=== PATIENT | male | born 1935 | race Caucasian/White ===

== ENCOUNTER 2018-05-27 10:08 | Outpatient (CLI) | payer OTHER, SELFPAY ==
[2018-05-27 10:55] LABS: Abs Immature Grans 0.02 k/cumm (0.0-0.09); Absolute Basophil Count 0.01 k/cumm (0.0-0.2); Absolute Eosinophil Count 0.02 k/cumm (0.0-0.7); Absolute Lymphocyte Count 1.62 k/cumm (1.2-3.4); Absolute Monocyte Count 1.21 k/cumm (0.11-0.7); Absolute Neutrophil Count 0.68 k/cumm (1.2-6.7); Basophils % 0.3; Eosinophils % 0.6; HGB 10.9 g/dL (13.5-17.5); Immature Grans % 0.6; Lymphocytes % 45.5; Mean Corpuscular Hemoglobin 30.7 pg (27.0-33.0); Mean Platelet Volume 13.2 fL (8.0-11.0); RBC 3.55 m/cumm (4.50-6.00); RBC Distribution Width 15.8 % (11.8-14.1); White Blood Cell Count 3.56 k/cumm (4.4-10.8)
[2018-05-27 11:11] LABS: ALT 21 U/L (12-78); AST 15 U/L (15-37); Albumin 3.8 g/dL (3.4-5.0); Alkaline Phosphatase 69 U/L (46-116); Anion Gap 9.7 mmol/L (3-11); BUN 40 mg/dL (7-18); Bilirubin, Total 0.7 mg/dL (0.2-1.0); CO2 24.3 mmol/L (21.0-32.0); CREATININE 1.43 mg/dL (0.70-1.30); Calcium 8.7 mg/dL (8.5-10.1); Chloride 109 mmol/L (98-107); Estimated GFR 47.46 (mL/min/1.73m2); Ferritin 63 ng/mL (8-388); Glucose 78 mg/dL (70-100); Potassium 4.3 mmol/L (3.5-5.1); Sodium 143 mmol/L (136-145); Total Protein 6.6 g/dL (6.4-8.2)
[2018-05-27 11:13] LABS: Iron 93 ug/dL (50-175); Total Iron Binding Capacity 362 ug/dL (250-450); Transferrin Sat 26 % (20-55)
[2018-05-27 11:16] LABS: Platelet Count 84 x1000/uL (130-400)
[2018-05-28 20:20] LABS: Erythropoietin 34.1 mIU/mL (2.6 - 18.5)
== END 2018-05-27 10:28 ==
PROVIDERS: PCP Family Medicine; Visit Provider Internal Medicine Hematology & Oncology
DX: D75.81 Myelofibrosis (principal); D50.0 Iron deficiency anemia secondary to blood loss (chronic); N18.9 Chronic kidney disease, unspecified
CPT/HCPCS: 36415; 80053; 82668; 82728; 83540; 83550; 85025

== ENCOUNTER 2018-10-26 07:02 | Outpatient (CLI) | payer OTHER, SELFPAY ==
[2018-10-26 07:51] LABS: ALT 30 U/L (12-78); AST 18 U/L (15-37); Albumin 3.8 g/dL (3.4-5.0); Alkaline Phosphatase 89 U/L (46-116); Anion Gap 9.5 mmol/L (3-11); BUN 29 mg/dL (7-18); Bilirubin, Total 0.7 mg/dL (0.2-1.0); CO2 25.5 mmol/L (21.0-32.0); CREATININE 1.48 mg/dL (0.70-1.30); Calcium 8.1 mg/dL (8.5-10.1); Chloride 108 mmol/L (98-107); Estimated GFR 45.62 (mL/min/1.73m2); Glucose 91 mg/dL (70-100); Potassium 4.1 mmol/L (3.5-5.1); Sodium 143 mmol/L (136-145); Total Protein 6.9 g/dL (6.4-8.2)
[2018-10-26 07:56] LABS: Abs Immature Grans 0.07 k/cumm (0.0-0.09); Absolute Basophil Count 0.01 k/cumm (0.0-0.2); Absolute Eosinophil Count 0.05 k/cumm (0.0-0.7); Absolute Lymphocyte Count 1.48 k/cumm (1.2-3.4); Absolute Monocyte Count 0.95 k/cumm (0.11-0.7); Absolute Neutrophil Count 1.12 k/cumm (1.2-6.7); Basophils % 0.3; Eosinophils % 1.4; HCT 35.8 % (40.0-50.0); HGB 11.8 g/dL (13.5-17.5); Immature Grans % 1.9; Lymphocytes % 40.2; Mean Corpuscular Hemoglobin 30.9 pg (27.0-33.0); Mean Corpuscular Volume 93.7 fL (80-95); Mean Platelet Volume 11.7 fL (8.0-11.0); Monocytes % 25.8; Neutrophils % 30.4; RBC 3.82 m/cumm (4.50-6.00); RBC Distribution Width 16.2 % (11.8-14.1); White Blood Cell Count 3.68 k/cumm (4.4-10.8)
[2018-10-26 08:18] LABS: Ferritin 56 ng/mL (8-388)
[2018-10-26 08:19] LABS: Platelet Count 76 x1000/uL (130-400)
[2018-10-26 08:20] LABS: RBC Morphology Normal
[2018-10-26 08:27] LABS: Iron 71 ug/dL (50-175); Total Iron Binding Capacity 387 ug/dL (250-450); Transferrin Sat 18 % (20-55)
[2018-10-26 08:33] LABS: Cholesterol 124 mg/dL (50-200); HDL Cholesterol 45 mg/dL (40-60); LDL CHOLESTEROL 73 mg/dL (<100); Triglyceride 36 mg/dL (30-150)
[2018-10-26 08:45] LABS: Uric Acid 8.2 mg/dL (3.5-7.2)
[2018-10-27 15:33] LABS: Erythropoietin 25.3 mIU/mL (2.6 - 18.5)
== END 2018-10-26 07:22 ==
PROVIDERS: PCP Family Medicine; Visit Provider Internal Medicine Hematology & Oncology
DX: I10 Essential (primary) hypertension (principal); E78.2 Mixed hyperlipidemia; M19.072 Primary osteoarthritis, left ankle and foot; D75.81 Myelofibrosis; D50.0 Iron deficiency anemia secondary to blood loss (chronic); N18.9 Chronic kidney disease, unspecified
CPT/HCPCS: 36415; 80053; 80061; 82668; 83721; 82728; 83540; 83550; 84550; 85025

== ENCOUNTER 2019-02-09 13:06 | Outpatient (CLI) | payer OTHER, SELFPAY ==
[2019-02-09 13:42] LABS: Abs Immature Grans 0.16 k/cumm (0.0-0.09); HCT 37.2 % (40.0-50.0); HGB 11.9 g/dL (13.5-17.5); Mean Corpuscular Hemoglobin 29.9 pg (27.0-33.0); Mean Corpuscular Volume 93.5 fL (80-95); Mean Platelet Volume 12.4 fL (8.0-11.0); RBC 3.98 m/cumm (4.50-6.00); RBC Distribution Width 15.4 % (11.8-14.1); White Blood Cell Count 4.27 k/cumm (4.4-10.8)
[2019-02-09 13:59] LABS: Iron 124 ug/dL (50-175); Total Iron Binding Capacity 390 ug/dL (250-450); Transferrin Sat 32 % (20-55)
[2019-02-09 14:00] LABS: ALT 26 U/L (12-78); AST 15 U/L (15-37); Albumin 4.1 g/dL (3.4-5.0); Alkaline Phosphatase 84 U/L (46-116); Anion Gap 12.6 mmol/L (3-11); BUN 39 mg/dL (7-18); Bilirubin, Total 0.8 mg/dL (0.2-1.0); CO2 24.4 mmol/L (21.0-32.0); CREATININE 1.58 mg/dL (0.70-1.30); Calcium 8.6 mg/dL (8.5-10.1); Chloride 108 mmol/L (98-107); Ferritin 40 ng/mL (8-388); Glucose 125 mg/dL (70-100); Sodium 145 mmol/L (136-145); Total Protein 7.1 g/dL (6.4-8.2)
[2019-02-09 14:06] LABS: Absolute Lymphocyte Count 1.45 k/cumm (1.2-3.4); Absolute Neutrophil Count 1.75 k/cumm (1.2-6.7); Atypical Lymphocytes % 1; Platelet Count 76 x1000/uL (130-400)
[2019-02-09 14:07] LABS: Diff Comment Manual Differential; RBC Morphology Normal
== END 2019-02-09 13:26 ==
PROVIDERS: PCP Family Medicine; Visit Provider Internal Medicine Hematology & Oncology
DX: D75.81 Myelofibrosis (principal); D50.0 Iron deficiency anemia secondary to blood loss (chronic)
CPT/HCPCS: 36415; 80053; 82728; 83540; 83550; 85025

== ENCOUNTER 2019-05-13 10:25 | Outpatient (CLI) | payer OTHER, SELFPAY ==
[2019-05-13 11:55] LABS: Iron 113 ug/dL (50-175); Total Iron Binding Capacity 356 ug/dL (250-450); Transferrin Sat 32 % (20-55)
[2019-05-13 12:08] LABS: ALT 29 U/L (16-63); AST 16 U/L (15-37); Albumin 4.2 g/dL (3.4-5.0); Alkaline Phosphatase 86 U/L (46-116); Anion Gap 8.9 mmol/L (3-11); BUN 37 mg/dL (7-18); Bilirubin, Total 0.8 mg/dL (0.2-1.0); CO2 27.1 mmol/L (21.0-32.0); CREATININE 1.64 mg/dL (0.70-1.30); Calcium 8.5 mg/dL (8.5-10.1); Chloride 108 mmol/L (98-107); Estimated GFR 40.52 (mL/min/1.73m2); Ferritin 78 ng/mL (8-388); Glucose 85 mg/dL (70-100); Sodium 144 mmol/L (136-145); Total Protein 6.9 g/dL (6.4-8.2)
[2019-05-13 15:03] LABS: Abs Immature Grans 0.19 k/cumm (0.0-0.09); Absolute Basophil Count 0.01 k/cumm (0.0-0.2); Absolute Eosinophil Count 0.03 k/cumm (0.0-0.7); Absolute Monocyte Count 1.08 k/cumm (0.11-0.7); Basophils % 0.2; Eosinophils % 0.7; HCT 38.6 % (40.0-50.0); HGB 12.3 g/dL (13.5-17.5); Immature Grans % 4.6; Lymphocytes % 36.5; Mean Corp. HGB Concentration 31.9 g/dL (32.0-36.0); Mean Corpuscular Hemoglobin 29.9 pg (27.0-33.0); Mean Corpuscular Volume 93.7 fL (80-95); Mean Platelet Volume 13.4 fL (8.0-11.0); Monocytes % 26.3; Neutrophils % 31.7; RBC 4.12 m/cumm (4.50-6.00); RBC Distribution Width 15.5 % (11.8-14.1); White Blood Cell Count 4.11 k/cumm (4.4-10.8)
[2019-05-13 15:36] LABS: Platelet Count 70 x1000/uL (130-400)
[2019-05-16 10:39] LABS: Erythropoietin 20.9 mIU/mL (2.6 - 18.5)
== END 2019-05-13 10:45 ==
PROVIDERS: PCP Family Medicine; Visit Provider Internal Medicine Hematology & Oncology
DX: D75.81 Myelofibrosis (principal); D50.0 Iron deficiency anemia secondary to blood loss (chronic); N18.9 Chronic kidney disease, unspecified
CPT/HCPCS: 36415; 80053; 82668; 82728; 83540; 83550; 85025

== ENCOUNTER 2021-09-24 12:34 | Outpatient (REF) | payer MEDICARE, SELFPAY ==
--- NOTE | 2021-09-24 11:30 | SKI_PTH ---
PATIENT: Zeeshan Reed LOC: [facility] U#:[id number] AGE/SX: 86/M ROOM: RE09/24/[address]: Darinel Beach MD : [id number] BED: DIS: 09/24/2021 SPEC #: [id number] RECD: 09/24/21 17:31 STATUS: EVAN RERios #: [id number] CASSI: 09/24/21 11:[address]: Darinel Beach DEPT: Surgical Specimen RECD BY: Georgia Langford ENTERED: 09/24/21 17:32 SP TYPE: BO SAWANT DR: Jack Briones Tissues: 1 - SKIN BIOPSY(SHAVE/PUNCH) Procedures: SKIN LEVEL 4 Comments: [id number]
== END 2021-09-24 12:35 | disposition home or self-care (01) ==
LOC: LBN 12:34
PROVIDERS: PCP Family Medicine; Visit Provider Otolaryngology
DX: C44.219 Basal cell carcinoma of skin of left ear and external auricular canal (principal)
CPT/HCPCS: 88305

== ENCOUNTER 2023-01-20 13:06 | Emergency (ER) | payer MEDICARE, SELFPAY ==
[2023-01-20 13:07] VITALS: BP 134/71; PULSE 60; RESP 17; TEMP 36.7; O2SAT 95
--- NOTE | 2023-01-20 13:15 | DI.CT_ITS ---
Exam(s) CT HEAD CERVICAL SPINE WO EXAM: CT HEAD CERVICAL SPINE WO CLINICAL HISTORY: fall, [place]. TECHNIQUE: Imaging Protocol: Axial computed tomography images with coronal and sagittal reformatted images were created and reviewed COMPARISON: No exams were available for comparison FINDINGS: BRAIN: There are no skull fractures nor fluid in the visualized paranasal sinuses. There is no evidence of intracranial hemorrhage, mass effect, or shift of midline structures. There are no extra-axial fluid collections. The ventricles are not enlarged or shifted and there is no blo od within the ventricular system nor within the basal cisterns. Abundant bilateral periventricular hypodensity consistent chronic small vessel disease. There is megan dence of previous area of infarct in the left frontal lobe. Slightly increased ventricular size evid ent. CERVICAL SPINE: No evidence of acute fracture. No prevertebral soft tissue swelling. There is multilevel advanced disc space narrowing and anterior osteophytes. No significant listhesis . Multilevel facet arthropathy. There is no significant facet joint malalignment. No significant osseous lesions evident. IMPRESSION: No evidence of intracranial hemorrhage. 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 Mildly prominent ventricular system relative to the overlying cortical sulci. If there is cl inical triad of dementia, incontinence, and gait disturbance then 1 might consider possibility of nor mal pressure hydrocephalus. Advanced chronic multilevel degenerative changes in the cervical spine. No evidence of cervical spine fracture, malalignment, nor acute compromise of the cervical spinal can al. RADIATION DOSE DELIVERED: Total DLP DATA REPOSITORY: All CT scans at this facility are submitted to the National Radiology Data Registry (NRDR) Dose Index Registry (DIR) with the [employer] ([employer]). RADIATION OPTIMIZATION: All CT scans at this facility use at least one of these dose optimization te chniques: automated exposure control; mA and/or kV adjustment per patient size (includes targeted exa ms where dose is matched to clinical indication); or iterative reconstruction.
--- NOTE | 2023-01-20 14:52 | ED.GENADUL_ITS ---
Discharge Plan Disposition Patient Disposition: Home Discharge Details Clinical Impression: Head injury, Laceration of forehead Primary Care Provider: None,None ED Provider: Georgia Tavarez Home Meds and New Rx's Prescriptions: Continued allopurinol 300 mg tablet 300 mg PO DAILY Patient Comments: Is taking PRN colchicine 0.6 mg capsule 0.6 mg PO DAILY Rx Instructions: Takes PRN diazepam 5 mg tablet 5 mg PO DIRECTED tamsulosin [Flomax] 0.4 mg capsule 0.8 mg PO DAILY gabapentin 100 mg capsule 100 mg PO DAILY losartan 50 mg tablet 50 mg PO DAILY ibuprofen [Advil] 200 mg tablet 200 mg PO Q6H PRN hydrochlorothiazide 25 mg tablet 25 mg PO DAILY aspirin 81 mg tablet,delayed release (DR/EC) 81 mg PO DAILY simvastatin 40 mg tablet 40 mg PO DAILY Discharge Instructions Instructions: Head Injury (ED), Facial Laceration (ED) Additional Instructions: Take Tylenol as needed for discomfort Apply bacitracin to the draining areas on your forehead, avoid the area with Dermabond, this will resolve on its own You may apply bacitracin to the wound on the left side of your eye as well Please return with spreading redness, fever, worsening pain Referrals: Jack Briones [OSTEOPATHIC DOCTOR] - Discharge Data Discharge Date/Time-TO BE ENTERED AT DEPARTURE: 01/20/23 15:13 Medical Decision Making 87-year-old male alert and oriented, cranial nerves II through XII intact, ambulatory with steady gait with cane CT head and cervical spine ordered secondary to age and comorbidities, do not show evidence of acute abnormality, there is mention of possible hydrocephalus, patient denies any urinary incontinence, balance issues or dementia, he can follow-up with his primary care physician regarding this report Patient adamantly refuses suture placement, he is agreeable to glue, he has a 1 inch laceration on his forehead, this was cleansed and Dermabond was applied, he also has approximately 1 inch laceration to the lateral aspect of his face that was cleansed, and is superficial, no Dermabond indicated Return precautions reviewed and patient expressed understanding HPI General Date/Time Provider Initiated Documentation: 01/20/23 13:13 . HPI Narrative: 87-year-old gentleman presents after a mechanical fall, went to step down from a porch and realize there was on a step, fell forward onto his head, denies loss of consciousness. Thinks his tetanus is up-to-date. Denies history of coagulopathy. Has pain over the area, denies any worsening symptoms. Ambulatory after the event reportedly did finish chemotherapy today, denies any complaints associated with this. Related Data Home Medications Medication Instructions Recorded Confirmed diazepam 5 mg tablet 5 mg PO DIRECTED 08/22/21 12/09/22 tamsulosin 0.4 mg capsule (Flomax) 0.8 mg PO DAILY 08/22/21 12/09/22 aspirin 81 mg tablet,delayed 81 mg PO DAILY 12/05/22 12/09/22 release gabapentin 100 mg capsule 100 mg PO DAILY 12/05/22 12/09/22 hydrochlorothiazide 25 mg tablet 25 mg PO DAILY 12/05/22 12/09/22 ibuprofen 200 mg tablet (Advil) 200 mg PO Q6H PRN 12/05/22 12/09/22 losartan 50 mg tablet 50 mg PO DAILY 12/05/22 12/09/22 simvastatin 40 mg tablet 40 mg PO DAILY 12/05/22 12/09/22 allopurinol 300 mg tablet 300 mg PO DAILY 12/09/22 12/09/22 colchicine 0.6 mg capsule 0.6 mg PO DAILY 12/09/22 12/09/22 Allergies Allergy/AdvReac Type Severity Reaction Status Date / Time amlodipine AdvReac Verified 12/09/22 08:35 General Stated Complaint: Fall/Non TraumaCriteria REKHA: 3 PFSH All Active Problems (Updated 01/20/23 @ 14:55 by LISANDRA Bearden) Head injury (Acute) Laceration of forehead (Acute) Advanced care planning/counseling discussion (Acute) Anxiety and depression (Chronic) Essential hypertension (Acute) Peripheral edema (Acute) CMML (chronic myelomonocytic leukemia) (Acute) Chronic pruritus (Acute) Stage 3b chronic kidney disease (CKD) (Acute) Impacted cerumen of right ear (Acute) Skin lesion of left ear (Acute) Medical History (Updated 01/20/23 @ 14:55 by LISANDRA Bearden) Actinic keratoses Arthritis of left ankle 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 Chronic kidney disease Degenerative disc disease, cervical Degenerative disc disease, lumbar Dyshydrosis Early dry stage nonexudative age-related macular degeneration Edema of both lower extremities Gastritis Gout of hand History of nephrolithiasis Hx of nephrolithotomy with removal of calculi Hx: UTI (urinary tract infection) Hydronephrosis of left kidney Idiopathic chronic gout of right hand Impacted cerumen of right ear Insomnia Large kidney Left cataract Loose bowel movements Low back pain Lower urinary tract infection Mixed hyperlipidemia Myelofibrosis Neck pain on left side Painful swallowing Palliative care encounter Post herpetic neuralgia Pseudophakia, both eyes Restless leg syndrome Rib pain on right side Risk for falls Shingles Spinal stenosis of lumbar region Testicular cyst Thrombocytopenia Tinea cruris Surgical History (Updated 12/09/22 @ 08:25 by Gabriela An RN) Hx of hernia repair Family History Mother Cancer Social History Smoking/Tobacco Use Status: Former Tobacco Use Second Hand Exposure: No Smoking risk assessment performed?: Yes Alcohol Intake: current Alcohol Intake frequency: a few times a week Alcohol type: wine Drug use: Never Household members: spouse current occupation: retired What is your relationship status?: living with partner Panel score (0-1 are the most socially isolated patients): 1 What type of physical activity do you participate in: walking Duration: > 90 minutes/day Course Vital Signs Vital signs: Vital Signs Temperature 36.7 C 01/20/23 13:07 Pulse 60 01/20/23 13:07 Respiratory Rate 17 01/20/23 13:07 Blood Pressure 134/71 01/20/23 13:07 Pulse Oximetry 95 01/20/23 13:07 Temperature 36.7 C 01/20/23 13:07 Temperature Source Temporal Artery Scan 01/20/23 13:07 Pulse 60 01/20/23 13:07 Respiratory Rate 17 01/20/23 13:07 Respiratory Effort Normal, Non-Labored 01/20/23 13:12 Blood Pressure 134/71 01/20/23 13:07 Blood Pressure Position Supine 01/20/23 13:07 Pulse Oximetry 95 01/20/23 13:07 Oxygen Delivery Method Room Air 01/20/23 13:07 Oxygen Flow Rate 0 01/20/23 13:07 Pain Level 4 01/20/23 13:07 Lab/Test Results Lab/Test Results: Laboratory Tests Range/Units 01/20/23 01/20/23 01/20/23 13:46 13:46 13:48 WBC Cancelled RBC Cancelled Hgb Cancelled Hct Cancelled MCV Cancelled MCH Cancelled MCHC Cancelled RDW Cancelled Plt Count Cancelled MPV Cancelled Immature Gran % Cancelled Neutrophils % Cancelled Band Neutrophils % Cancelled Lymphocytes % Cancelled Atypical Lymphs % Cancelled Monocytes % Cancelled Eosinophils % Cancelled Basophils % Cancelled Metamyelocytes % Cancelled Myelocytes % Cancelled Promyelocytes % Cancelled Other Cells % Cancelled Nucleated RBC % Cancelled Absolute Neutrophils Cancelled Absolute Lymphocytes Cancelled Absolute Monocytes Cancelled Absolute Eosinophils Cancelled Absolute Basophils Cancelled RBC Morphology Cancelled Polychromasia Cancelled Hypochromasia Cancelled Poikilocytosis Cancelled Basophilic Stippling Cancelled Anisocytosis Cancelled Microcytosis Cancelled Macrocytosis Cancelled Spherocytes Cancelled Tear Drop Cells Cancelled Ovalocytes Cancelled Stomatocytes Cancelled [place] Bodies Cancelled Lillian Cells/Echinocytes Cancelled Acanthocytes (Spur) Cancelled Schistocytes Cancelled Sodium Cancelled Potassium Cancelled Chloride Cancelled Carbon Dioxide Cancelled Anion Gap Cancelled BUN Cancelled Creatinine Cancelled Est GFR (CKD-EPI 2020) Cancelled Glucose Cancelled Calcium Cancelled Magnesium Cancelled Total Bilirubin Cancelled AST Cancelled ALT Cancelled Alkaline Phosphatase Cancelled Ammonia Troponin I Cancelled Total Protein Cancelled Albumin Cancelled Lipase Cancelled TSH Cancelled Ethyl Alcohol Cancelled Range/Units 01/20/23 01/20/23 13:48 16:48 WBC RBC Hgb Hct MCV MCH MCHC RDW Plt Count MPV Immature Gran % Neutrophils % Band Neutrophils % Lymphocytes % Atypical Lymphs % Monocytes % Eosinophils % Basophils % Metamyelocytes % Myelocytes % Promyelocytes % Other Cells % Nucleated RBC % Absolute Neutrophils Absolute Lymphocytes Absolute Monocytes Absolute Eosinophils Absolute Basophils RBC Morphology Polychromasia Hypochromasia Poikilocytosis Basophilic Stippling Anisocytosis Microcytosis Macrocytosis Spherocytes Tear Drop Cells Ovalocytes Stomatocytes [place] Bodies Lillian Cells/Echinocytes Acanthocytes (Spur) Schistocytes Sodium Potassium Chloride Carbon Dioxide Anion Gap BUN Creatinine Est GFR (CKD-EPI 2020) Glucose Calcium Magnesium Total Bilirubin AST ALT Alkaline Phosphatase Ammonia Cancelled Troponin I Cancelled Total Protein Albumin Lipase TSH Ethyl Alcohol
== END 2023-01-20 15:13 | disposition home or self-care (01) ==
LOC: ER 14:59
PROVIDERS: Emergency Provider Physician Assistant
DX: S01.81XA Laceration without foreign body of other part of head, initial encounter (principal); S09.90XA Unspecified injury of head, initial encounter; W10.9XXA Fall (on) (from) unspecified stairs and steps, initial encounter
CPT/HCPCS: 80053; 83690; 99284; 70450; 72125; 80320; 82140; 83735; 84443; 84484; 85025